=== PATIENT | female | born 1990 | race Caucasian/White ===

== ENCOUNTER 2021-09-14 08:52 | Emergency (ER) | payer MEDICAID ==
[~2021-09-14] VITALS: Ht 165.1 cm; Wt 127.0 kg
[2021-09-14] MEDS ORDERED: BACITRACIN ZINC OINT UDPKT TOP ONE (09:30)
[2021-09-14] MEDS ORDERED: ACETAMINOPHEN 325MG TABLET PO ONE (09:30)
[2021-09-14] MEDS ORDERED: LIDOCAINE HCL/EPINEPHRINE 1%-EPI 1:100,000 20 ML VIAL INFIL ONE (09:30)
[2021-09-14] MEDS ORDERED: IBUP-2029 MT (10:15)
[2021-09-14] MEDS ORDERED: SULFAMETHOXAZOLE/TRIMETHOPRIM 800/160MG TABLET PO ONE (10:15)
[2021-09-14] MEDS ORDERED: SULF1TAB48 MT (10:15)
[2021-09-14] MEDS ORDERED: BACI28OI9 TP (10:15)
[2021-09-14 10:47] VITALS: BP 132/78
== END 2021-09-14 10:49 | disposition home or self-care (01) ==
LOC: ER 09:14
DX: L02.212 Cutaneous abscess of back [any part, except buttock and flank] (principal); L03.312 Cellulitis of back [any part except buttock and flank]; Z88.0 Allergy status to penicillin
CPT/HCPCS: 10060; 99283; J3490

== ENCOUNTER 2021-09-16 12:08 | Emergency (ER) | payer MEDICAID ==
[~2021-09-16] VITALS: Ht 165.1 cm; Wt 127.0 kg
[~2021-09-16 12:08] MED LIST: BACI28OI9 TP; IBUP-2029 MT; SULF1TAB48 MT
[2021-09-16] MEDS ORDERED: MUPI22OI2 TP (13:40)
[2021-09-16] MEDS ORDERED: CLIN-194 MT (13:40)
[2021-09-16 15:20] VITALS: BP 111/75
== END 2021-09-16 15:20 | disposition home or self-care (01) ==
LOC: ER 12:08
DX: S21.212D Laceration without foreign body of left back wall of thorax without penetration into thoracic cavity, subsequent encounter (principal); X58.XXXD Exposure to other specified factors, subsequent encounter; Z79.899 Other long term (current) drug therapy; Z88.0 Allergy status to penicillin
CPT/HCPCS: 99281; 99283